=== PATIENT | male | born 1975 | race Caucasian/White ===

== ENCOUNTER 2025-03-16 07:58 | Emergency (ER) | payer BC, SELFPAY ==
--- NOTE | ~2025-03-16 | XR_ITS ---
EXAMINATION: XR chest 2V, 03/16/2025 8:30 BRIDGE RIGGER HISTORY: CP COMPARISON: No comparisons available. Technique: 2 views obtained. Findings: The lungs are clear, no effusion. No pneumothorax. Heart is normal size. Mediastinal and hilar contours are within normal limits. Bony thorax no acute abnormality. Impression: No acute cardiopulmonary abnormality. Reviewed, dictated and finalized at location P. GE RIGGER Impression: No acute cardiopulmonary abnormality.
[2025-03-16 07:58] VITALS: BP 145/93; PULSE 84; RESP 20; TEMP 36.4; O2SAT 100
--- NOTE | 2025-03-16 08:04 | ECG_ITS ---
Test Date: 2025-03-16 08:14:53 Measurements Intervals [place] Rate: 80 P: -25 VA: 133 QRS: 70 QRSD: 126 T: 56 QT: 386 QTc: 448 Interpretive Statements SINUS RHYTHM INCOMPLETE RIGHT BUNDLE BRANCH BLOCK BORDERLINE ECG No previous ECG available for comparison Electronically Signed On 03-16-2025 13:21:21 GAS APPLIANCE SERVICER by Ronan Goldstein M.D.
--- NOTE | 2025-03-16 08:12 | PC.NURSE ---
Per pt request, Isaak the pt's was called at [phone] to give update on pt arrival to ED.
[2025-03-16 08:20] LABS: Hematocrit 44.9 % (42.0-52.0); Hemoglobin 14.2 g/dL (14.0-18.0); Immature Granulocyte Percent A 0.3 % (0-0.5); Lymphocytes Absolute Auto 1.68 K/mm3 (0.9-3.2); Mean Corpuscular HGB Conc 31.6 g/dl (32-36); Mean Corpuscular Hemoglobin 27.6 pg (26-34); Mean Corpuscular Volume 87.2 fl (80-100); Nucleated Red Blood Cells Absolute Auto 0.000 K/mm3 (0.0-0.012); Nucleated Red Blood Cells Perc 0.0 % (0.0-0.2); Platelet Count Result 303 k/mm3 (150-375); Red Blood Count 5.15 M/mm3 (4.6-6.20); White Blood Count 7.1 K/mm3 (4.5-10.0)
[2025-03-16 08:33] LABS: Alanine Aminotransferase 28 U/L (6-50); Albumin Level 4.3 g/dL (3.5-5.1); Alkaline Phosphatase 78 U/L (38-126); Anion Gap 5 mmol/L (4-12); Aspartate Amino Transferase 31 U/L (17-59); Bilirubin,Total 1.2 mg/dL (0.2-1.3); Blood Urea Nitrogen 13 mg/dL (9-20); Calcium 9.0 mg/dL (8.4-10.2); Carbon Dioxide 27 mmol/L (22-30); Chloride 105 mmol/L (98-107); Estimated CRCL calculation 91 ml/min; Estimated Glomerular Filt Rate > 60; Glucose 100 mg/dL (65-110); INR 1.0; Lipase 167 U/L (23-300); Potassium 3.7 mmol/L (3.4-5.0); Prothrombin Time 13.6 Seconds (11.1-14.7); Sodium 137 mmol/L (137-145); Total Protein 7.5 g/dL (6.3-8.2)
[2025-03-16 08:34] LABS: Partial Thromboplastin Time 28.3 Seconds (22.3-36.8)
[2025-03-16 08:45] LABS: Troponin I < 0.012 ng/mL (0.000-0.034)
--- OUTSIDE RECORDS SUMMARY | 2025-03-16 08:49 | XMS_ITS | Clinical Summary ---
Author Organization [facility] Address [facility] [place] [address] Care Team Providers Care Cloth Folder Machine Name Role Phone Josephine Livingston MD Primary Care Provider [phone] Allergies No known active allergies Medications sildenafil 50 MG tablet Take 50 mg by mouth as needed. 11/06/2019 Active Immunizations Immunization Administration Dates Next Due Tdap (Boostrix) 11/19/2019 Social History Tobacco Use Types Packs/Day Years Used Date Smoking Tobacco: Every Day Cigarettes Smokeless Tobacco: Never Alcohol Use Standard Drinks/Week Comments Never 0 (1 standard drink = 0.6 oz pur e alcohol) AUDIT-C Answer Date Recorded Q1: How often do you have a drink containing alc ohol? Never 11/19/2019 Average Number of Drinks Not on file 020 Frequency of Binge Drinking Not on file 05/2019 Sex and Gender Information Value Date Recorded Sex Assigned at Not on file Legal Sex Male 8:25 PM CDT Gender Identity Not on file Sexual Orientation Not on file Last Filed Vital Signs Vital Sign Reading Time Taken Comments Blood Pressure 157/99 11/19/2019 6:32 PM CDT Pulse 80 11/19/2019 6:32 PM CDT Temperature 36.3 C (97.4 F) 11/19/2019 4:01 PM CDT Respiratory Rate 16 11/19/2019 6:32 PM CDT Oxygen Saturation 99% 11/19/2019 6:32 PM CDT Inhaled Oxygen Concentration - - Weight 86.2 kg (190 lb) 11/19/2019 4:01 PM CDT Height 193 cm (6' 4) 11/19/2019 4:01 PM CDT Body Mass Index 23.13 11/19/2019 4:01 PM CDT Plan of Treatment Health Maintenance Due Date Last Done Comments Colorectal Cancer Screening Colonoscopy (10 Years) 1976 Annual Physical 08/16/1979 Hepatitis C 1994 Hepatitis B Vaccines (1 of 3 - 19+ 3-dose series) 08/16/1995 Pneumococcal Vaccine: Pediat rics (0 to 5 Years) and At-Risk Patients (6 to 49 Years) (1 of 2 - PCV) 08/16/1995 COVID-19 Vaccine ( - 2024-2 6 season) 2024 Influenza Adult (#1) 2025 DTaP, Tdap and Td Vaccines ( 2 - Td or Tdap) 11/18/2029 11/19/2019 Hepatitis A Vaccines Aged Out No long er eligible based on patient's age to complete this topic Meningococcal B Vaccine Aged Out No l onger eligible based on patient's age to complete this topic Meningococcal Vaccine Aged Out No afsaneh miguelito eligible based on patient's age to complete this topic RSV Immunizations Under 20 Months Aged Out No longer eligible based on patient's age to complete this topic Insurance [facility] MEDICAID MEDICAL REIMBURSEMENTS OF [place] Care Teams Cloth Folder Machine Relationship Specialty Start Date End Date Josephine Livingston MD [address] [place] [address] PCP - General FAMILY PRACTICE 11/19/19
[2025-03-16 09:32] LABS: Cannabinoid Screen Urine Negative (Negative)
[2025-03-16 10:11] VITALS: BP 159/93; PULSE 88; RESP 16; O2SAT 100
--- NOTE | 2025-03-16 10:11 | ED.GENADULT ---
HPI - General Adult General Chief complaint: Chest Pain Stated complaint: CP Time Seen by Provider: 03/16/25 08:07 History of Present Illness HPI narrative: This is a 49-year-old male with history of amphetamine abuse presenting for chest pain. Patient says he woke up this morning with heaviness in his left arm. He then developed some burning in the left side of his chest which prompted him to come to the ER for evaluation. Patient denies diaphoresis exertion or vomiting. The patient said he had a stress test about 10 years ago due to chest pain at that time which was negative. Patient says he has been having this chest pain once or twice a week for the last 4 months. He denies any fevers productive cough shortness of breath abdominal pain or lower extremity edema. Related Data Allergies Allergy/AdvReac Type Severity Reaction Status Date / Time No Known Allergies Allergy Verified 03/16/25 08:05 Exam Narrative: APPEARANCE: No apparent distress. Head: atraumatic. EYES: EOMI, NOSE: Atraumatic NECK: Trachea midline RESPIRATORY: No increased rate of breathing clear to auscultation CARDIOVASCULAR: RRR, no peripheral edema ABDOMINAL: Non-distended soft nontender MUSCULOSKELETAl: No obvious deformities NEURO: Alert. Moving 4/4 extremities SKIN:: Warm, dry. Normal color PSYCHIATRIC: Normal affect Course Vital Signs Vital signs: Vital Signs Temperature 97.6 F 03/16/25 07:58 Pulse Rate 84 03/16/25 07:58 Respiratory Rate 20 03/16/25 07:58 Blood Pressure 145/93 H 03/16/25 07:58 Pulse Oximetry 100 03/16/25 07:58 Oxygen Delivery Room Air 03/16/25 07:58 Temperature 97.6 F 03/16/25 07:58 Pulse Rate 86 03/16/25 11:00 Respiratory Rate 19 03/16/25 11:00 Blood Pressure 145/85 H 03/16/25 11:00 Pulse Oximetry 100 03/16/25 11:00 Oxygen Delivery Room Air 03/16/25 08:06 Medical Decision Making [facility] Narrative Medical decision making narrative: -Course: 49-year-old male presenting with left arm heaviness after waking up and left-sided chest pain. Patient's pain has resolved and he is currently asymptomatic. Patient's pain sounds noncardiac. Chest pain workup obtained which showed no ischemic changes on EKG. Troponins negative x2. Patient positive for amphetamines. Patient was re-evaluated and is still resting comfortably with no symptoms. He would like to be discharged. Results were discussed with the patient and he is a good candidate for outpatient evaluation. He will be discharged with cardiology referral. Given return precautions for chest pain. Instructed to stop using meth due to negative effects on the heart. -DDX includes but is not limited to: ACS, amphetamine chest pain, chest wall pain, compressive neuropathy, cervical radiculopathy, nerve palsy -Co-morbidities complicating care: Amphetamine abuse Vital Signs Vital Signs: Vital Signs Temperature 97.6 F 03/16/25 07:58 Pulse Rate 84 03/16/25 07:58 Respiratory Rate 20 03/16/25 07:58 Blood Pressure 145/93 H 03/16/25 07:58 Pulse Oximetry 100 03/16/25 07:58 Oxygen Delivery Room Air 03/16/25 07:58 Temperature 97.6 F 03/16/25 07:58 Pulse Rate 86 03/16/25 11:00 Respiratory Rate 19 03/16/25 11:00 Blood Pressure 145/85 H 03/16/25 11:00 Pulse Oximetry 100 03/16/25 11:00 Oxygen Delivery Room Air 03/16/25 08:06 Lab Data 03/16/25 08:08 03/16/25 08:08 Labs: Lab Results 03/16/25 03/16/25 03/16/25 Range/Units 08:08 09:02 11:08 WBC 7.1 (4.5-10.0) K/mm3 RBC 5.15 (4.6-6.20) M/mm3 Hgb 14.2 (14.0-18.0) g/dL Hct 44.9 (42.0-52.0) % MCV 87.2 (80-100) fl MCH 27.6 (26-34) pg MCHC 31.6 L (32-36) g/dl RDW 12.9 (11.5-14.5) % Plt Count 303 (150-375) k/mm3 MPV 8.3 (7.4-10.4) fl Immature Gran % (Auto) 0.3 (0-0.5) % Neut % (Auto) 66.7 (45.5-73.1) % Lymph % (Auto) 23.8 (18.3-44.2) % [place] % (Auto) 5.8 (2.6-8.5) % Eos % (Auto) 2.7 (0-4.4) % Baso % (Auto) 0.7 (0.2-1.2) % Lymph # (Auto) 1.68 (0.9-3.2) K/mm3 [place] # (Auto) 0.4 (0.1-0.6) K/mm3 Eos # (Auto) 0.2 (0-0.3) K/mm3 Baso # (Auto) 0.1 (0.0-0.1) K/mm3 Abs Immat Gran (auto) 0.02 (0.00-0.031) K/mm3 Absolute Neuts (auto) 4.7 (1.3-6.7) K/mm3 Absolute Nucleated RBC 0.000 (0.0-0.012) K/mm3 Nucleated RBC % 0.0 (0.0-0.2) % PT 13.6 (11.1-14.7) Seconds INR 1.0 APTT 28.3 (22.3-36.8) Seconds Sodium 137 (137-145) mmol/L Potassium 3.7 (3.4-5.0) mmol/L Chloride 105 (98-107) mmol/L Carbon Dioxide 27 (22-30) mmol/L Anion Gap 5 (4-12) mmol/L BUN 13 (9-20) mg/dL Creatinine 0.96 (0.7-1.3) mg/dL Estim Creat Clear Calc 91 ml/min Estimated GFR > 60 (59 - ) Glucose 100 (65-110) mg/dL Calcium 9.0 (8.4-10.2) mg/dL Total Bilirubin 1.2 (0.2-1.3) mg/dL AST 31 (17-59) U/L ALT 28 (6-50) U/L Alkaline Phosphatase 78 (38-126) U/L Troponin I < 0.012 < 0.012 (0.000-0.034) ng/mL Total Protein 7.5 (6.3-8.2) g/dL Albumin 4.3 (3.5-5.1) g/dL Lipase 167 (23-300) U/L Urine Opiates Screen Negative (Negative) Urine Methadone Screen Negative (Negative) Ur Barbiturates Screen Negative (Negative) Ur Phencyclidine Scrn Negative (Negative) Ur Amphetamine Screen Positive A (Negative) U Benzodiazepines Scrn Negative (Negative) Urine Cocaine Screen Negative (Negative) U Cannabinoids Screen Negative (Negative) Discharge Plan Discharge Clinical Impression: Chest pain Patient Disposition: Home Condition: Stable Instructions: Antibiotic Form, Chest Pain (ED) Additional Instructions: You were seen emergency department for chest pain. Your workup here was reassuring. Please call the meat and seafood manager listed below to arrange outpatient follow-up. If he redevelops chest pain or any new symptoms please return to the ED for re-evaluation. Patient Language: Faroese Follow-up/Referrals: Ronan Goldstein MD [Physician, Cardiology] - 1 Week Clinical Impression: Chest pain Livingston,Josephine Gregory MD [Primary Care Provider, Unknown]
--- NOTE | 2025-03-16 10:54 | ECG_ITS ---
Test Date: 2025-03-16 11:13:32 Measurements Intervals [place] Rate: 81 P: -23 DE: 131 QRS: 86 QRSD: 130 T: 67 QT: 386 QTc: 450 Interpretive Statements SINUS RHYTHM INCOMPLETE RIGHT BUNDLE BRANCH BLOCK BORDERLINE ECG Compared to ECG 03/16/2025 08:14:53 NO DIFFERENCE Electronically Signed On 03-16-2025 13:27:23 BED CONTROL SPECIALIST by Ronan Goldstein M.D.
[2025-03-16 11:00] VITALS: BP 145/85; PULSE 86; RESP 19; O2SAT 100
[2025-03-16 11:37] LABS: Troponin I < 0.012 ng/mL (0.000-0.034)
[2025-03-16 12:06] VITALS: BP 149/82; PULSE 68; RESP 17; O2SAT 100
== END 2025-03-16 12:09 | disposition home or self-care (01) ==
PROVIDERS: Emergency Provider Emergency Medicine; PCP Family Medicine
DX: R07.9 Chest pain, unspecified (principal); F15.10 Other stimulant abuse, uncomplicated; I45.10 Unspecified right bundle-branch block
CPT/HCPCS: 36415; 71046; 80053; 80307; 83690; 84484; 85025; 85610; 85730; 93005; 99284